=== PATIENT | female | born 1975 | race Two or more races ===

== ENCOUNTER 2024-12-13 10:00 | Outpatient (AMB) | payer MEDICAID, SELFPAY ==
[2024-12-13 10:14] VITALS: BP 115/75; PULSE 81; RESP 18; TEMP 36.4; O2SAT 97; BMI 38.6
--- NOTE | 2024-12-13 10:14 | ORTHONT_ITS ---
Vital signs 12/13/24 10:14 Height 1.68 m Height Method Stated Weight 108.635 kg Weight Measurement Method Standing Scale BMI 38.6 BP 115/75 Blood Pressure Source Automatic Cuff Blood Pressure Location Right Upper Arm Position Sitting Respiration 18 Pulse 81 Pulse Source Monitor Temp 97.6 F Temp Source Temporal Artery Scan Pulse Oximetry (%) 97 Oxygen Delivery Method Room Air Med/Allergies Allergies & Medications Allergies No Known Drug Allergies Allergy (Verified 12/13/24 10:15) Medication Reconciliation metformin 750 mg tablet,extended release 24 hr 750 mg PO QDAY 12/13/24 [History Confirmed 12/13/24] Exam Exam Breathing is nonlabored. Patient has a normal mood and affect. Bilateral extremities were evaluated and demonstrates sensation intact to light touch. Palpable pedal pulses are present. No significant edema is present. Bilateral hips were examined. The patient has no pain with log roll of the hips. Internal rotation to 30 degrees and external rotation to 30 degrees is painless. Negative FADIR. Left knee was examined today. The left knee is in reasonable alignment. Range of motion from 0-120 degrees. Knee is stable to varus and valgus as well as AP translation with <5mm. Patient has a negative McMurrays. There is no pain with patellofemoral compression and no crepitus noted. The knee is nontender to palpation. The right knee was also examined. The right knee is in varus alignment. Range of motion from 0-115 degrees. Knee is stable to varus and valgus as well as AP translation with <5mm. Patient has a negative McMurrays. There is no pain with patellofemoral compression and no crepitus noted. The knee is tender to palpation medially. Patient has no x-rays to review today only the report which demonstrates moderate arthritis Assessment and Plan Problem List (1) Arthritis of right knee: Status: Acute Plan: Patient is a pleasant 49-year-old female with arthritis of the right knee. She has tried some conservative treatment. We would like to get weightbearing x- rays to see the severity of the arthritis. We Will discuss different treatment options depending on what that shows Office Procedures GNS Level of Care Nursing/Assessment Patient Status: Initial/New Patient Nursing Assessment/Reassesment: Medication Reconciliation, Update PMH in EMR and Vital Signs Coordination of Care: Complex Care and Chronic Disease 1-5, Education Complex Pt/Fam, Consent,records obtained, informed consent, Results/Orders obtained and Staff clarify orders Special Needs: Language special needs New Patient Charge New Patient Point Assignment: 1094 New Patient Point Charge: PEDIATRIC CNS Level 3 ([id number]) MA Intake Visit Data Collection New Patient or Established: New Patient (never been to [facility]) Reason for Visit:: KNEE PAIN Seen by Clinical Staff ONLY (RN/MA): No Verbal consent obtained for Telemed visit?: No System Controller Required: Yes PCP or OBGYN visit in last 3 months: Yes Hx Now: No Do You Feel Safe at Home: Yes Authorities Contacted: N/A Questionairres Past Medical History Past Medical History Have you ever been diagnosed with any of the following: Respiratory Problems Smoking: No Smoking Cessation Counseling: No Smoking Exposure: No Tobacco Use: No Stomache/Intestinal Problems Obesity: Yes Endocrine Problems Diabetes Mellitus Type 2: Yes Subjective Visit Visit for: new patient and knee Immunization / Flu Flu Vaccine in the Last 12 Months: No Flu Vaccine Exclusion Criteria: Refused by Patient History of Present Illness Chief complaint: KNEE PAIN Date of injury / onset of symptoms: 5 YEARS Patient is a 49 yo female with right knee pain And right knee arthritis. She has had pain for over 10 years and has tried 1 injection lasted about 4 months and naproxen. She has tried to lose weight Personal History Occupation: [employer] PMH: BMI BMI Counceling provided: Yes Pain Pain level (0-10): 6 Pain duration: ALL DAY Pain location: inside (medial), outside (lateral), anterior and posterior Pain quality: sharp, dull and aching Pain timing: increases with activity Associated signs & symptoms: none Ambulatory data Ambulatory device: none Treatments Number of previous injections: 1 Improvement with previous injections: Yes Improvement with PT: No Improvement with NSAIDS: no Review of Systems Review of Systems: All systems negative unless otherwise noted in HPI.
--- NOTE | 2024-12-13 10:27 | XR_ITS ---
Examination: Bilateral AP knees single view PA lateral axial right knee 3 views Technique: Bilateral AP knees standing single view Standing PA lateral axial right knee 3 views total 4 views Exam date and time: December 13, 2024 1039 hrs. Indications: Injury to the knee on the right 10 years ago with persistent pain. Findings: Moderate osteopenia Advanced narrowing medial joint space right knee Significant osteoarthritis right patellofemoral joint No patellar dislocation Mild to moderate narrowing medial and lateral joint spaces left knee Impression: Advanced narrowing medial joint space right knee Significant osteoarthritis right patellofemoral joint
== END 2024-12-13 10:30 | disposition home or self-care (01) ==
PROVIDERS: PCP Physician Assistant; Referring Provider Physician Assistant; Supervising Provider Orthopaedic Surgery Adult Reconstructive Orthopaedic Surgery; Visit Provider Orthopaedic Surgery Adult Reconstructive Orthopaedic Surgery
DX: M17.11 Unilateral primary osteoarthritis, right knee (principal); E11.9 Type 2 diabetes mellitus without complications; E66.9 Obesity, unspecified; Z68.38 Body mass index [BMI] 38.0-38.9, adult
CPT/HCPCS: 73564; 99203; G0463

== ENCOUNTER 2025-01-01 08:55 | Outpatient (AMB) | payer MEDICAID, SELFPAY ==
[2025-01-01 09:36] VITALS: BP 137/78; PULSE 78; RESP 18; TEMP 36.7; O2SAT 18; BMI 38.5
--- NOTE | 2025-01-01 09:36 | ORTHONT_ITS ---
Vital signs 01/01/25 09:36 Height 1.68 m Height Method Stated Weight 108.664 kg Weight Measurement Method Standing Scale BMI 38.5 BP 137/78 H Blood Pressure Source Automatic Cuff Blood Pressure Location Left Upper Arm Position Sitting Respiration 18 Pulse 78 Pulse Source Monitor Temp 98.1 F Temp Source Temporal Artery Scan Pulse Oximetry (%) 18 L Oxygen Delivery Method Room Air Med/Allergies Allergies & Medications Allergies No Known Drug Allergies Allergy (Verified 01/01/25 09:37) Medication Reconciliation metformin 750 mg tablet,extended release 24 hr 750 mg PO QDAY 12/13/24 [History Confirmed 01/01/25] meloxicam 7.5 mg tablet 7.5 mg PO QDAY #45 tabs 01/01/25 [Rx] Exam Exam Breathing is nonlabored. Patient has a normal mood and affect. Bilateral extremities were evaluated and demonstrates sensation intact to light touch. Palpable pedal pulses are present. No significant edema is present. Bilateral hips were examined. The patient has no pain with log roll of the hips. Internal rotation to 30 degrees and external rotation to 30 degrees is painless. Negative FADIR. Left knee was examined today. The left knee is in reasonable alignment. Range of motion from 0-120 degrees. Knee is stable to varus and valgus as well as AP translation with <5mm. Patient has a negative McMurrays. There is no pain with patellofemoral compression and no crepitus noted. The knee is nontender to palpation. The right knee was also examined. The right knee is in varus alignment. Range of motion from 0-115 degrees. Knee is stable to varus and valgus as well as AP translation with <5mm. Patient has a negative McMurrays. There is no pain with patellofemoral compression and no crepitus noted. The knee is tender to palpation medially. X-rays demonstrate severe arthritis on the right with [id number] arthritis and varus deformity.On the medial side, she has moderate arthritis Assessment and Plan Problem List (1) Arthritis of right knee: Status: Acute Plan: Patient is a pleasant 49-year-old female with arthritis of the right knee. She has tried some conservative treatment. She would like bilateral knee injections Recommend knee cortisone injection as patient would like to proceed with conservative treatment at this time. The risks and benefits of the procedure were reviewed with the patient and patient gave verbal consent to continue with the procedure. Procedure: performed by Dr. Hatch Using sterile technique the Right knee was thoroughly prepped with alcohol, and approximately 1 cc of Kenalog 40 mg/mL and 4 cc of 1% lidocaine was injected without resistance into the medial tibial femoral joint space. The patient tolerated the procedure. Office Procedures GNS Level of Care Nursing/Assessment Patient Status: Established Patient Nursing Assessment/Reassesment: Medication Reconciliation, Update PMH in EMR and Vital Signs Coordination of Care: Complex Care and Chronic Disease 1-5, Consent,records obtained, informed consent, Education Simp Pt/Fam, Results/Orders obtained and Staff clarify orders Special Needs: Language special needs (L[place]VI[place] ) Established Patient Charge Established Patient Point Assignment: 90 Established Patient Point Charge: EP Level 3 (80-115) Surgical Proc/IM SQ injection Major Surgical Procedure: Yes (KNEE INJECTION) Medication Given Medication Given Medication Given: Yes Documented Dose Given: 4 Route: Infiitration Medication Given Medication Given Medication Given: Yes Documented Dose Given: 4 Route: Infiitration Medication Given Medication Given Medication Given: Yes Documented Dose Given: 1 Route: Infiitration Medication Given Medication Given Medication Given: Yes Documented Dose Given: 1 Route: Infiitration Office Meds Xylocaine 10 mg/mL (1 %) injection solution Performing Provider: Benjamin Hatch MD Performing Location: [facility] Administered by: Benjamin Hatch MD on 01/01/25 09:56 Dose Route Admin Location Dispensed Lot Number Expiration Date FORMERLY NAMED [facility] Broadcast Maintenance Technician 20 mL Infiltration 20 mL [id number] 03/04/28 07708-282-99 [employer] Xylocaine 10 mg/mL (1 %) injection solution Performing Provider: Benjamin Hatch MD Performing Location: [facility] Administered by: Benjamin Hatch MD on 01/01/25 09:56 Dose Route Admin Location Dispensed Lot Number Expiration Date FORMERLY NAMED [facility] Broadcast Maintenance Technician 20 mL Infiltration 20 mL [id number] 03/04/28 57699-275-85 [employer] triamcinolone acetonide 40 mg/mL suspension for injection Performing Provider: Benjamin Hatch MD Performing Location: [facility] Administered by: Benjamin Hatch MD on 01/01/25 09:56 Dose Route Admin Location Dispensed Lot Number Expiration Date FORMERLY NAMED [facility] Broadcast Maintenance Technician 40 mg intra-articular KNEE 1 mL [id number] 07/04/26 0024-8486-15 [employer] triamcinolone acetonide 40 mg/mL suspension for injection Performing Provider: Benjamin Hatch MD Performing Location: [facility] Administered by: Benjamin Hatch MD on 01/01/25 09:56 Dose Route Admin Location Dispensed Lot Number Expiration Date NDC Broadcast Maintenance Technician 40 mg intra-articular KNEE 1 mL [id number] 07/04/26 6559-7578-54 TE [employer] MA Intake Visit Data Collection New Patient or Established: Established Patient (seen at [facility] within 3 years) Reason for Visit:: RT KNEE XRAY RESULT/KNEE INJECTION Seen by Clinical Staff ONLY (RN/MA): No Dryer Feeder Required: Yes PCP or OBGYN visit in last 3 months: Yes Hx Now: No Do You Feel Safe at Home: Yes Authorities Contacted: N/A Questionairres Past Medical History Past Medical History Have you ever been diagnosed with any of the following: Respiratory Problems Smoking: No Smoking Cessation Counseling: No Smoking Exposure: No Tobacco Use: No Stomache/Intestinal Problems Obesity: Yes Endocrine Problems Diabetes Mellitus Type 2: Yes Subjective Visit Visit for: follow up visit and knee (RT KNEE ) Immunization / Flu Flu Vaccine in the Last 12 Months: No Flu Vaccine Exclusion Criteria: Refused by Patient History of Present Illness Chief complaint: KNEE PAIN Date of injury / onset of symptoms: 5 YEARS Patient is a 49 yo female with right knee pain And right knee arthritis. She has had pain for over 10 years and has tried 1 injection hwich lasted about 4 months and naproxen. She has tried to lose weight Personal History Occupation: [employer] PMH: none BMI Counceling provided: Yes Pain Pain level (0-10): 7 Pain duration: 2 WEEKS Pain location: anterior Pain quality: sharp and tingling Pain timing: increases with activity (DURING WORK ) Associated signs & symptoms: none Ambulatory data Ambulatory device: none Walking distance (blocks): 0 Walking distance (minutes): 4 (DURING WORK BREAKS, AND AFTER WORK ) Treatments Number of previous injections: 1 Improvement with previous injections: Yes Number of Physical Therapy sessions: 0 Improvement with PT: No Improvement with NSAIDS: n/a Review of Systems Review of Systems: All systems negative unless otherwise noted in HPI.
== END 2025-01-01 10:01 | disposition home or self-care (01) ==
LOC: HODSRG 08:55
PROVIDERS: PCP Physician Assistant; Referring Provider Physician Assistant; Supervising Provider Orthopaedic Surgery Adult Reconstructive Orthopaedic Surgery; Visit Provider Orthopaedic Surgery Adult Reconstructive Orthopaedic Surgery
DX: M17.11 Unilateral primary osteoarthritis, right knee (principal); E11.9 Type 2 diabetes mellitus without complications
CPT/HCPCS: 20610; 99213; J3301; J3490; G0463